=== PATIENT | female | born 1940 | race Caucasian/White ===

== ENCOUNTER → 2016-10-12 | Outpatient (REF) | LOC: ZLAB.WCH 10:28 | DX: Z01.89 Encounter for other specified special examinations (principal) ==

== ENCOUNTER → 2017-10-24 | Outpatient (REF) | LOC: ZLAB.WCH 14:02 | DX: Z01.89 Encounter for other specified special examinations (principal) ==

== ENCOUNTER → 2018-02-14 | Outpatient (REF) | LOC: ZLAB.WCH 16:47 | DX: Z01.89 Encounter for other specified special examinations (principal) ==

== ENCOUNTER → 2018-08-15 | Outpatient (REF) ==
[~2018-08-15] MED LIST: ASPIRIN 81M81 MG/TA2 PO; FOSAMAX 70MG TA70 MG PO; GLUCOPHAGE1000 MG PO; NORCO 325 MG-51 TAB PO; OSCAL 500 TAB500 MG PO; TYLENOL 325MG325 MG PO; ZOCOR 20MG20 MG PO
== END ==
LOC: ZLAB.WCH 10:02
DX: Z01.89 Encounter for other specified special examinations (principal)